=== PATIENT | female | born 1995 | race Caucasian/White ===

== ENCOUNTER 2023-01-13 13:51 | Emergency (ER) | payer OTHER, SELFPAY ==
[2023-01-13 14:00] VITALS: BP 123/75; PULSE 77; RESP 16; TEMP 36.6; O2SAT 100
--- NOTE | 2023-01-13 14:13 | ED.URI ---
HPI - URI/Sore Throat General Chief Complaint: Upper Respiratory Infection Stated Complaint: Sore Throat/Cough Source: patient and RN notes reviewed History of Present Illness HPI Narrative: 27-year-old female presents to urgent care with complaints of congestion, hoarse voice, and sore throat x2 days. Patient denies any ear pain, vomiting, diarrhea, chest pain, or shortness of breath. Patient has been taking Zyrtec at home with minimal relief. Some parts of this dictation were generated by voice recognition software and may contain typographical and/or grammatical inaccuracies. Related Data Home Medications Medication Instructions Recorded Confirmed Zyrtec 01/13/23 Allergies Allergy/AdvReac Type Severity Reaction Status Date / Time No Known Drug Allergies Allergy Unknown Verified 03/08/17 16:43 Review of Systems Review of Systems: CONSTITUTIONAL: Denies fever, chills, or sweats. EYES: Denies visual changes, redness, or discharge. ENT: Sore throat, congestion, and hoarse voice CARDIOVASCULAR: Denies chest pain, palpitations, or edema. RESPIRATORY: Denies cough or dyspnea. GASTROINTESTINAL: Denies abdominal pain, nausea, vomiting, or diarrhea. GENITOURINARY: Denies dysuria or hematuria. SKIN: Denies rash or itching. MUSCULOSKELETAL: Denies back pain, joint pain, or myalgia. NEUROLOGIC: Denies headache, numbness, or weakness. PMFSH Comments At the time of my signature, I reviewed and agree with the nursing past medical, surgical, social, and family history. There is no relevant family history pertinent to the patient complaint. Exam Narrative: GENERAL: This is a well-nourished, well-developed patient, in no apparent distress. HEAD: normocephalic, atraumatic. EYES: PERRL. Sclera clear/white. Vision is grossly intact. EARS: External ears normal, auditory canals clear and without drainage, TMs normal without perforation. Hearing grossly intact. NOSE: External nose normal with no obvious nasal discharge. Congestion. THROAT: Mucous membranes moist, posterior pharynx erythema. NECK: Neck supple, mild and tender lymphadenopathy. CARDIOVASCULAR: Regular rate and rhythm without murmurs, gallops, or rubs. RESPIRATORY: Clear to auscultation. Breath sounds equal bilaterally. No wheezes, rales, or rhonchi. GASTROINTESTINAL: Abdomen soft, non-tender, nondistended. Bowel sounds are active. No hepato-splenomegaly, or palpable masses. No guarding. SKIN: warm, intact with no suspicious lesions or rash, good texture and turgor. NEURO: awake, alert, and oriented to person, place and time. There were no obvious focal neurologic abnormalities. BACK: Nontender without deformity or crepitance. No flank tenderness. Course Course Level of Care: Express Care Visit Vital Signs Vital signs: Vital Signs Temperature 97.9 F 01/13/23 14:00 Pulse Rate 77 01/13/23 14:00 Respiratory Rate 16 01/13/23 14:00 Blood Pressure 123/75 01/13/23 14:00 Pulse Oximetry 100 01/13/23 14:00 Oxygen Delivery Room Air 01/13/23 14:00 Temperature 97.9 F 01/13/23 14:00 Pulse Rate 77 01/13/23 14:00 Respiratory Rate 16 01/13/23 14:00 Blood Pressure 123/75 01/13/23 14:00 Pulse Oximetry 100 01/13/23 14:00 Oxygen Delivery Room Air 01/13/23 14:00 Reviewed MDM - URI/Sore Throat MDM Narrative Medical decision making narrative: Viral illness may last between 7-12days; antibiotic is NOT recommended at this time. Recommend antihistamine such as Benadryl at night time and Claritin/Zyrtec/Venita during the day. Increase your Vitamin C intake. Steam from hot showers help with congestion. Cough syrup may cause drowsiness; avoid driving or take it at night time. Also, recommend symptomatic treatment includes: rest, fluids, increase humidity of the air at home with a humidifier in the bedroom. Recommend Acetaminophen or nonsteroidal anti-inflammatory agents(NSAIDs) as directed in the bottle to reduce fever and/pain/headache.
== END 2023-01-13 14:32 | disposition home or self-care (01) ==
PROVIDERS: Emergency Provider Nurse Practitioner Family
DX: J06.9 Acute upper respiratory infection, unspecified (principal)
CPT/HCPCS: 87081; 87880; 99213; G0463

== ENCOUNTER 2023-01-16 08:53 | Emergency (ER) | payer OTHER, SELFPAY ==
[2023-01-16 09:05] VITALS: BP 109/75; PULSE 100; RESP 18; TEMP 36.9; O2SAT 99
--- NOTE | 2023-01-16 09:33 | ED.URI ---
HPI - URI/Sore Throat General Chief Complaint: Upper Respiratory Infection Stated Complaint: unknown Time Seen by Provider: 01/16/23 09:34 Source: patient, RN notes reviewed and old records reviewed Mode of arrival: ambulatory Limitations: no limitations History of Present Illness HPI Narrative: 27 year old female who presents to [facility] care with complaints of sinus congestion and sinus pressure, cough, sore throat for one week duration. Patient is accompanied by her mother and her baby who is to be seen also.She reports that she is here visiting mother and will be moving to [place] in 10 days, is in . Patient is her son at this time and has been taking Flonase and Zyrtec for her symptoms. Patient reports that cough is productive of green mucous, denies any known fevers, reports headache and sinus pressure 6/10. MD elicited complaint: cough, sore throat, rhinorrhea, nasal congestion and sinus pain Pertinent past history: sinusitis and seasonal allergies Onset (ago): week(s) (1) Pain scale (0-10): 6 Treatments prior to arrival: other (Zyrtec and Flonase) Related Data Home Medications Medication Instructions Recorded Confirmed cetirizine 10 mg tablet (Zyrtec) 10 mg PO DAILY 01/16/23 01/16/23 Allergies Allergy/AdvReac Type Severity Reaction Status Date / Time No Known Drug Allergies Allergy Unknown Unknown Verified 01/16/23 09:29 Review of Systems Review of Systems: CONSTITUTIONAL: Denies malaise, chills, sweats, or fever. EYES: Denies visual changes, redness, or discharge. ENT: Reports rhinorrhea, congestion, sinus pain, no otalgia positive sore throat. CARDIOVASCULAR: Denies chest pain, palpitations, or edema. RESPIRATORY: Reports productive cough.? Denies dyspnea. GASTROINTESTINAL: Denies abdominal pain, nausea, vomiting, diarrhea SKIN: Denies rash or itching. MUSCULOSKELETAL: Denies myalgia. NEUROLOGIC:Reports headache. All systems reviewed & are unremarkable except as noted in HPI and below PMFSH Past Medical History Medical History (Updated 01/17/23 @ 07:39 by Mei Krueger NP) Seasonal allergies Sinusitis Surgical History Surgical History (Updated 01/17/23 @ 07:40 by Mei Krueger NP) History of dilatation and curettage Social History Social History (Updated 01/17/23 @ 07:38 by Mei Krueger NP) Smoking status: Never smoker Alcohol intake: former Alcohol use details: social, is at this time Substance use: never Substance use type: does not use Living arrangements: with family Gender identity (if verbalized by the patient): Female Comments At time of signature, agree with nursing past medical, surgical, social and family history. There is no relevant family history pertinent to the presenting complaint Exam Narrative: GENERAL: Well-appearing, well-nourished, and in no acute distress. HEAD: Normocephalic EYES: PERRLA, conjunctivae clear ENT: Nares clear, turbinates edematous and erythematous, clear discharge. Mucous membranes moist.Facial pressure and headache discomfort. TM pearly merino with dull light reflex bilaterally; no tragal tenderness. Oropharynx erythematous without lesions. Tonsils enlarged and without exudate, no drooling, no hoarseness, no trismus, uvula midline.post nasal drainage NECK: Supple. No lymphadenopathy CHEST: Clear to auscultation, breath sounds equal. No wheezing, rhonchi, rales, or stridor. No respiratory distress, speaks in full sentences.productive cough expectoration of green phlegm.KERI 99% on room air HEART: Regular rate and rhythm. No murmur heard. SKIN: Warm, dry, no rash. NEURO: Alert and oriented x3. PSYCH: Normal mood and affect Course Course Emergency Course: Patient is aware of diagnosis, understands and agrees to treatment plan.? Anticipatory guidance given.? Patient agrees to follow-up as directed and is aware of reasons to seek care at the emergency dep
== END 2023-01-16 10:15 | disposition home or self-care (01) ==
PROVIDERS: Emergency Provider Registered Nurse
DX: J32.9 Chronic sinusitis, unspecified (principal)
CPT/HCPCS: 87081; 87880; 99213; G0463